=== PATIENT | female | born 1990 | race Caucasian/White ===

== ENCOUNTER 2018-12-16 11:00 | Emergency (ER) | payer MEDICAID, SELFPAY ==
[2018-12-16] VITALS (31 sets, daily range): BP systolic 92–116; BP diastolic 52–69; PULSE 83–113; RESP 9–29; TEMP 36.6; O2SAT 93–99
--- NOTE | 2018-12-16 11:28 | W.ED.GENAD ---
Discharge Plan Disposition Patient Disposition: HOME Condition: Stable Discharge Details Chief Complaint: Nk/Back Pain Clinical Impression: Cervical strain, acute Primary Care Provider: Scarlet Ortiz ED Provider: Ralph Whyte Home Meds and New Rx's Prescriptions: New methocarbamol 500 mg tablet 500 - 1,000 mg PO Q6H PRN (Reason: Pain) Qty: 14 RF: 0 Continued Mirena 20 mcg/24 hours (5 yrs) 52 mg Intrauterine Device INTRAUTERINE RF: 0 Discharge Instructions Instructions: Cervical Strain (ED) Additional Instructions: May use soft cervical collar as needed for comfort. Remove Lidoderm patch in 12 hours, leave off for 12 hours, then may replace with [id number] Lidoderm patch. Ibuprofen 600 to 800 mg every 8 hours, with food. May also use Tylenol 650 mg every 6 hours. Methocarbamol, as prescribed, as needed for pain and spasm. Gentle massage, warm/moist heat, liniment may help in reducing discomfort. Return to the ER for worsening discomfort, development of a rash, difficulty breathing, or any other acute concerns. Stand Alone Forms: Work Release Medical Decision Making 28-year-old female presents from home stating that she rolled out of bed of developed intrascapular upper back and neck pain yesterday.'s been constant, worse with movement. Minimally improved with hqky-bup-wjxinli medicines at home. She arrives a temperature of 36, slightly elevated pulse of 113, normal blood pressure of 113/67 with a room air oxygenation of 97%. She does have some posterior muscular tenderness, but differential diagnosis would include ACS, dissection, pulmonary embolism in addition to muscular strain/spasm. IV access was established, patient given fluid bolus, parenteral analgesia, acetaminophen and Lidoderm patch. Referred for laboratory testing. The d-dimer is elevated greater than 1000. Labs otherwise notable for white blood cell count of 11. Troponin is negative x2 CT scan of the chest without acute findings. Patient improving with medication. Discussed with her that this does seem consistent with cervical/paraspinous thoracic strain. Will treat with methocarbamol, Lidoderm patch, soft cervical collar to be used as needed. She understands homecare/return precautions. ECG Data Attestation: I personally reviewed and interpreted this ECG (s) as follows: Interpretation: Sinus rhythm with a rate of 92, the QRS is narrow, no ST segment elevation present, unremarkable GA interval HPI General Mode of arrival: ambulatory. Date/Time Provider Initiated Documentation: 12/16/18 11:03. Limitations to Documentation: no limitations. Information obtained by: patient. History of Present Illness 28 year old F presents to the emergency department with the chief complaint of Neck and back pain, described as moderate, Quality is described as constant, and is localized to the neck and back. Patient started experiencing this hour(s) and it has been constant. No relieving factors improve symptom(s), Movement worsens symptoms . Patient notes other (No weakness of the hands, no numbness. Denies fall or injury. No leg pain or swelling.); denies headaches. Related Data Home Medications Medication Instructions Recorded Confirmed Mirena INTRAUTERINE 12/16/18 methocarbamol 500 - 1,000 mg PO Q6H PRN #14 tab 12/16/18 Previous Rx's Medication Instructions Recorded methocarbamol 500 - 1,000 mg PO Q6H PRN #14 tab 12/16/18 Allergies Allergy/AdvReac Type Severity Reaction Status Date / Time amoxicillin [Amoxicillin] AdvReac Mild Skin Rash Unverified 12/16/18 11:17 General Stated Complaint: Nk/Back Pain ABEL: 3 Review of Systems Narrative: Some pain with deep breath. No fall or injury. Note recent illness. 6 systems reviewed and otherwise negative [facility] Social History Smoking/Tobacco Use Status: Former Tobacco Use Drug use: Never Substance use type: does not use Do you feel safe at home: Yes Do you feel safe in your relationship?: Yes Exam Narrative Exam Narrative: GEN: awake, alert, oriented 3. Pleasant, well groomed, interactive. HEAD: Normocephalic, atraumatic ENT: Mucous membranes moist, oropharynx unremarkable, External ear exam unremarkable EYES: PERRL, EOMI NECK: Full ROM, no CYNDIE, no menigismus CHEST/RESP: Nontender, clear to auscultation bilateral, no wheeze/rhonchi/rales CARDIOVASCULAR: Regular and tachycardic, no murmur, rub walt. 2+ Rad pulse bilateral ABDOMEN: Soft, nontender, no mass. +Bowel sounds EXT: Full ROM, no edema, no rash Neuro: Grossly normal neurologic exam, conversant, interactive. Psych: Speech fluent, thoughts congruent, affect normal Course Vital Signs Vital signs: Vital Signs Temperature 36.6 C 12/16/18 11:14 Pulse 113 H 12/16/18 11:14 Respiratory Rate 18 12/16/18 11:14 Blood Pressure 113/67 12/16/18 11:14 Pulse Oximetry 97 12/16/18 11:14 Temperature 36.6 C 12/16/18 11:14 Temperature Source Temporal Artery Scan 12/16/18 11:14 Pulse 113 H 12/16/18 11:14 Respiratory Rate 18 12/16/18 11:14 Respiratory Effort Non-Labored 12/16/18 11:14 Blood Pressure 113/67 12/16/18 11:14 Pulse Oximetry 97 12/16/18 11:14 Oxygen Delivery Method Room Air 12/16/18 11:14 Oxygen Flow Rate 0 12/16/18 11:14 Pain Level 10 12/16/18 11:14 Comment 12/16/18 11:14
[2018-12-16] MEDS: Lidocaine 5% Patch 1 PATCH TP (11:51)
[2018-12-16] MEDS: Ketorolac 15 MG/ML VIAL IVP (11:52)
[2018-12-16] MEDS: Ondansetron 4 MG/2 ML VIAL (11:52)
[2018-12-16] MEDS: Normal Saline 500 ML 1000 ML IV (11:53)
[2018-12-16 12:03] LABS: Abs Immature Grans 0.03 k/cumm (0.0-0.09); Absolute Basophil Count 0.02 k/cumm (0.0-0.2); Absolute Eosinophil Count 0.03 k/cumm (0.0-0.7); Absolute Lymphocyte Count 1.56 k/cumm (1.2-3.4); Absolute Monocyte Count 1.37 k/cumm (0.11-0.7); Basophils % 0.2; Eosinophils % 0.3; HCT 40.2 % (36.0-46.0); HGB 13.5 g/dL (12.0-15.5); Immature Grans % 0.3; Lymphocytes % 13.9; Mean Corp. HGB Concentration 33.6 g/dL (32.0-36.0); Mean Corpuscular Hemoglobin 29.9 pg (27.0-33.0); Mean Corpuscular Volume 88.9 fL (80-95); Mean Platelet Volume 10.5 fL (8.0-11.0); Monocytes % 12.2; Neutrophils % 73.1; Platelet Count 249 x1000/uL (130-400); RBC 4.52 m/cumm (4.00-5.20); RBC Distribution Width 12.8 % (11.7-14.6); White Blood Cell Count 11.25 k/cumm (4.4-10.8)
[2018-12-16 12:04] LABS: Absolute Neutrophil Count 8.22 k/cumm (1.2-6.7)
[2018-12-16 12:18] LABS: ALT 37 U/L (14-59); AST 26 U/L (15-37); Albumin 3.8 g/dL (3.4-5.0); Alkaline Phosphatase 99 U/L (46-116); Anion Gap 9.1 mmol/L (3-11); BUN 6 mg/dL (7-18); Bilirubin, Total 0.2 mg/dL (0.2-1.0); CO2 23.9 mmol/L (21.0-32.0); CREATININE 0.81 mg/dL (0.55-1.02); Calcium 8.9 mg/dL (8.5-10.1); Chloride 102 mmol/L (98-107); Glucose 99 mg/dL (70-100); Potassium 4.2 mmol/L (3.5-5.1); Sodium 135 mmol/L (136-145); Total Protein 8.2 g/dL (6.4-8.2); Troponin I < 0.05 ng/mL (0.00-0.06)
[2018-12-16 12:35] LABS: D-Dimer 1163 ng/mlFEU (<500)
[2018-12-16] MEDS: Omnipaque 350 MG/ML 100 ML BTL IJ (12:50)
--- NOTE | 2018-12-16 13:05 | DI.CT_ITS ---
EXAM: CT CHEST PE CTA CLINICAL HISTORY: Elev Ddimer, posterior pain TECHNIQUE: Axial CT angiography was performed with multi slice acquisition and multi planar and/or 3 D reconstructions. The exam was performed utilizing 75 cc's of Omnipaque 350. COMPARISON: No exams were available for comparison FINDINGS: There is no evidence of a pulmonary embolus. The thoracic aorta is of normal caliber. No evidence o f thoracic aortic dissection or aneurysm. The heart size is within normal limits. No pericardial ef fusion or evidence of right heart strain. No significant thoracic adenopathy, pleural effusion or pn eumothorax. Dependent atelectatic changes are seen in the lung bases. No focal consolidating infilt rates are seen in the lungs. The tracheobronchial tree is unremarkable. No acute osseous abnormalit y is seen in the spine. The esophagus is unremarkable. IMPRESSION: No evidence of pulmonary embolism, thoracic aortic dissection or aneurysm.
--- NOTE | 2018-12-16 13:50 | DI.VRAD_ITS ---
PROCEDURE INFORMATION: Exam: CT Angiography Chest With Contrast Exam date and time: 12/16/2018 12:39 PM Clinical history: 28 years old, female; Other: Posterior back pain; Patient HX: Pain posterior back. shoulder blade area. No trauma. No surgeries. Not . No HX of blood clots TECHNIQUE: Imaging protocol: Computed tomographic angiography of the chest with intravenous contrast. 3D rendering: MIP reconstructed images were created and reviewed. Radiation optimization: All CT scans at this facility use at least one of these dose optimization techniques: automated exposure control; mA and/or kV adjustment per patient size (includes targeted exams where dose is matched to clinical indication); or iterative reconstruction. Contrast material: OMNIPAQUE 350; Contrast volume: 75 ml; Contrast route: IV; COMPARISON: CR CHEST 2 VIEWS PA,LAT 11/09/2015 8:52 AM FINDINGS: Pulmonary arteries: Normal. No pulmonary emboli. Aorta: The aorta is normal in caliber with no evidence of aneurysm or dissection. There is pulsation artifact in the ascending aorta. Lungs: There are no focal air space opacities. There are dependent changes in the lung bases related to hypoinflation. Pleural space: Unremarkable. No pneumothorax. No pleural effusion. Heart: Unremarkable. No cardiomegaly. No pericardial effusion. Mediastinum: The trachea and main bronchi are patent. The esophagus is unremarkable. Lymph nodes: Unremarkable. No enlarged lymph nodes. Bones/joints: Unremarkable. No acute fracture. Soft tissues: Unremarkable. IMPRESSION: 1. No evidence of a pulmonary embolism. 2. Dependent changes with no focal air space opacities to suggest pneumonia. Remainder of non-emergent findings as described above. Dictated and Authenticated by: Maddi Ervin MD. Ordering:NING Rosas MD
[2018-12-16] MEDS: Acetaminophen 500 MG TAB 1000 MG PO (14:20)
[2018-12-16 15:17] LABS: Troponin I < 0.05 ng/mL (0.00-0.06)
[2018-12-16] MEDS: Methocarbamol 500 MG TAB (15:44)
== END 2018-12-16 15:50 | disposition home or self-care (01) ==
PROVIDERS: Emergency Provider Emergency Medicine; PCP Internal Medicine
DX: S16.1XXA Strain of muscle, fascia and tendon at neck level, initial encounter (principal); X58.XXXA Exposure to other specified factors, initial encounter
CPT/HCPCS: 36415; 71275; 80053; 96361; 96374; 99285; 84484; 85025; 85379; 99284; J1885; J2405; J3490; L0120

== ENCOUNTER 2019-06-17 14:19 | Outpatient (REF) | payer MEDICAID, SELFPAY ==
[2019-06-18 07:18] LABS: COVID-19 RT-PCR UVMMC Result Negative (Negative)
== END 2019-06-17 14:39 ==
LOC: NCHCN 14:19
PROVIDERS: PCP Internal Medicine; Visit Provider Nurse Practitioner Family
DX: Z11.59 Encounter for screening for other viral diseases (principal)
CPT/HCPCS: U0003

== ENCOUNTER 2019-08-13 13:00 | Outpatient (REF) | payer MEDICAID, SELFPAY ==
[2019-08-13 16:03] LABS: HGB 12.5 g/dL (12.0-15.5); Mean Corp. HGB Concentration 32.9 g/dL (32.0-36.0); Mean Corpuscular Hemoglobin 29.6 pg (27.0-33.0); Mean Platelet Volume 10.4 fL (8.0-11.0); Platelet Count 330 x1000/uL (130-400); RBC 4.22 m/cumm (4.00-5.20); RBC Distribution Width 12.8 % (11.7-14.6)
[2019-08-13 16:22] LABS: ALT 37 U/L (14-59); AST 19 U/L (15-37); Albumin 3.8 g/dL (3.4-5.0); Alkaline Phosphatase 87 U/L (46-116); Anion Gap 8.1 mmol/L (3-11); BUN 9 mg/dL (7-18); Bilirubin, Total 0.2 mg/dL (0.2-1.0); CO2 26.9 mmol/L (21.0-32.0); CREATININE 0.67 mg/dL (0.55-1.02); Calcium 8.6 mg/dL (8.5-10.1); Chloride 104 mmol/L (98-107); Glucose 95 mg/dL (74-106); Potassium 4.2 mmol/L (3.5-5.1); Sodium 139 mmol/L (136-145); TSH (W/Ref FT4) 0.49 uIU/mL (0.36-3.74); Total Protein 7.1 g/dL (6.4-8.2)
== END 2019-08-13 13:20 ==
LOC: NCHCN 13:00
PROVIDERS: PCP Internal Medicine; Visit Provider Nurse Practitioner Family
DX: R53.83 Other fatigue (principal); Z68.35 Body mass index [BMI] 35.0-35.9, adult
CPT/HCPCS: 80053; 85027; 84443

== ENCOUNTER 2020-04-22 15:57 | Outpatient (REF) | payer MEDICAID, SELFPAY ==
[2020-04-23 13:00] LABS: COVID-19 RT-PCR UVMMC Result Negative (Negative)
== END 2020-04-22 15:58 | disposition home or self-care (01) ==
LOC: LBN 15:57
PROVIDERS: PCP Internal Medicine; Visit Provider Nurse Practitioner Pediatrics
DX: Z20.822 Contact with and (suspected) exposure to COVID-19 (principal)
CPT/HCPCS: U0003

== ENCOUNTER 2020-06-24 14:22 | Outpatient (REF) | payer MEDICAID, SELFPAY ==
[2020-06-24 20:50] LABS: Abs Immature Grans 0.01 10^3/uL (0.0-0.06); Absolute Basophil Count 0.08 10^3/uL (0.0-0.2); Absolute Lymphocyte Count 2.93 10^3/uL (1.2-3.4); Absolute Monocyte Count 0.67 10^3/uL (0.1-0.8); Absolute Neutrophil Count 4.76 10^3/uL (1.2-6.7); Basophils % 0.9; Eosinophils % 1.2; HCT 40.3 % (36.0-46.0); HGB 13.3 g/dL (11.2-15.7); Immature Grans % 0.1; Lymphocytes % 34.3; MCH 30.2 pg (27.0-33.0); MCV 91.6 fL (80-95); MPV 10.4 fL (8.0-11.0); Monocytes % 7.8; Neutrophils % 55.7; Nucleated RBC 0 %; Platelet Count 333 10^3/uL (130-400); RDW 12.1 % (11.7-14.6); RDW-SD 40.8 fL; WBC 8.55 10^3/uL (4.4-10.8)
[2020-06-24 21:53] LABS: ALT 42 U/L (14-59); AST 20 U/L (15-37); Albumin 4.4 g/dL (3.4-5.0); Alkaline Phosphatase 83 U/L (46-116); Anion Gap 9.7 mmol/L (3-11); BUN 7 mg/dL (7-18); Bilirubin, Total 0.4 mg/dL (0.2-1.0); CO2 27.3 mmol/L (21.0-32.0); CREATININE 0.7 mg/dL (0.55-1.02); Calcium 9.2 mg/dL (8.5-10.1); Chloride 104 mmol/L (98-107); Glucose 89 mg/dL (74-106); Potassium 4.1 mmol/L (3.5-5.1); Sodium 141 mmol/L (136-145); Total Protein 7.9 g/dL (6.4-8.2)
[2020-06-24 22:40] LABS: FREE T4 1.09 ng/dL (0.76-1.46)
== END 2020-06-24 14:23 | disposition home or self-care (01) ==
LOC: LBN 14:22
PROVIDERS: PCP Internal Medicine; Visit Provider Physician Assistant Medical
DX: R53.83 Other fatigue (principal)
CPT/HCPCS: 80053; 84439; 84443; 85025

== ENCOUNTER 2020-08-10 11:38 | Outpatient (REF) | payer MEDICAID, SELFPAY ==
[2020-08-10 15:45] LABS: ESR 12 mm/hr (0-20)
[2020-08-10 16:27] LABS: C-Reactive Protein 0.57 mg/dL (0.0-0.3); TSH (W/Ref FT4) 0.51 uIU/mL (0.36-3.74)
[2020-08-10 21:54] LABS: Rheumatoid Factor <8.6 IU/mL (<12.0)
[2020-08-11 15:23] LABS: ANA Interpretation Positive (Negative); ANA Titer Pattern 1:160 Speckled
== END 2020-08-10 11:39 | disposition home or self-care (01) ==
LOC: NCHCN 11:38
PROVIDERS: PCP Internal Medicine; Visit Provider Nurse Practitioner
DX: M25.59 Pain in other specified joint (principal); Z13.29 Encounter for screening for other suspected endocrine disorder
CPT/HCPCS: 85652; 84443; 86038; 86140; 86431

== ENCOUNTER 2020-08-31 15:04 | Emergency (ER) | payer MEDICAID, SELFPAY ==
[2020-08-31] VITALS (37 sets, daily range): BP systolic 98–126; BP diastolic 49–77; PULSE 52–91; RESP 4–21; TEMP 36.4; O2SAT 93–100
--- NOTE | 2020-08-31 15:00 | RT.EKG_ITS ---
APPROVED REPORT Exam: Resting ECG Reason for Exam: feeling faint Patient Location: E HR:82 bpm ECG Measurements Heart Rate 82 AXIS RI 150 P 32 QRSd 98 QRS 65 QT 387 T 44 QTc 452 Conclusion Sinus rhythm...normal P axis, V-rate 60- 99. No STEMI. I have reviewed and interpreted ECG and agree with software generated interpretation.
--- NOTE | 2020-08-31 15:29 | W.ED.GENAD ---
Discharge Plan Disposition Patient Disposition: HOME Condition: Stable Discharge Details Clinical Impression: Weakness generalized, Hypokalemia Primary Care Provider: Scarlet Ortiz ED Provider: Amber Chavez Home Meds and New Rx's Prescriptions: No Action fluticasone propionate 50 mcg/actuation spray,suspension 1 spray intranasal BID RF: 0 duloxetine 30 mg capsule,delayed release(DR/EC) 30 mg PO DAILY RF: 0 Mirena 20 mcg/24 hours (5 yrs) 52 mg Intrauterine Device INTRAUTERINE RF: 0 Discharge Instructions Instructions: Hypokalemia (ED), Weakness (ED) Additional Instructions: Today your potassium level was mildly low at a level of 3.1. This can cause weakness. Increase bananas or take a supplement. The Lyme panel is still pending at this time. Please follow up with PCP in 3-5 days. Increase oral fluids. Return for any worsening. A referral was placed for neurology. Stand Alone Forms: Work Release Referrals: Scarlet Ortiz [Primary Care Provider] - Dasia Bergman MD [ [facility] STAFF PHYSICIAN] - 2 weeks (Generalized weakness, tingling, headaches.) Discharge Data Discharge Date/Time-TO BE ENTERED AT DEPARTURE: 08/31/20 18:44 Medical Decision Making 30-year-old the ER female presents with chief complaint of dizziness, tingling, near syncope. 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 Patient reports she becomes, hot, flushed and then feels like she is going to pass out. Denies MCPHERSON, Chest pain, SOB, Dysuria, or abdominal pain. Patient states she had a MCPHERSON, and nausea yesterday which was alleviated by OTC migraine medicine. Patient states she was recently prescribed Cymbalta Monday but has only taken 1 tablet. She has never seen neurology, but a referral was alledgedly placed by PCP. Denies trauma, fever, neck pain. Imaging protocol: Computed tomography of the head without contrast. COMPARISON: No relevant prior studies available. FINDINGS: Brain: Normal. No hemorrhage. Unremarkable white matter. No mass effect. Cerebral ventricles: No ventriculomegaly. Paranasal sinuses: Visualized sinuses are unremarkable. No fluid levels. Mastoid air cells: Visualized mastoid air cells are well aerated. Bones/joints: Unremarkable. No acute fracture. Soft tissues: Unremarkable. IMPRESSION: No acute intracranial abnormality. Thank you for allowing us to participate in the care of your patient. Dictated and Authenticated by: Sonido Knox MD Labs are notable for slight leukocytosis, potassium 3.1, Anion gap 15.8, TSh WNL Urinalysis negative for UTI, Lyme panel pending at this time. Will DC with referral to PCP, and Neurology. Diff Dx includes but not limited to, Anxiety, MS, Fibromyalgia, Lyme disease. Patient reevaluation, she is alert and oriented, awake moving all 4 extremities without difficulty appears in no acute distress. Friend is at bedside. Discussed findings with patient who verbalized understanding. This text was generated using [employer] (acquired by [employer]) dictation system, please disregard any oddities of phrase or misspellings. HPI General Mode of arrival: ambulatory. Date/Time Provider Initiated Documentation: 08/31/20 15:26. Limitations to Documentation: no limitations. Information obtained by: patient and RN notes reviewed. HPI Narrative: 30-year-old the ER female presents with chief complaint of dizziness, tingling, near syncope. 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 Patient reports she becomes, hot, flushed and then feels like she is going to pass out. Denies MCPHERSON, Chest pain, SOB, Dysuria, or abdominal pain. Patient states she had a MCPHERSON, and nausea yesterday which was alleviated by OTC migraine medicine. Patient states she was recently prescribed Cymbalta Monday but has only taken 1 tablet. She has never seen neurology, but a referral was alledgedly placed by PCP. Denies trauma, fever, neck pain. Related Data Home Medications Medication Instructions Recorded Confirmed Mirena INTRAUTERINE 12/16/18 fluticasone propionate 50 1 spray INTRANASAL BID 08/10/20 08/31/20 mcg/actuation nasal spray,suspension duloxetine 30 mg PO DAILY 08/31/20 08/31/20 Allergies Allergy/AdvReac Type Severity Reaction Status Date / Time amoxicillin [Amoxicillin] AdvReac Mild Skin Rash Unverified 08/31/20 15:23 General Stated Complaint: Dizzy/Sync ABEL: 3 Review of Systems Narrative: Constitutional: Negative for weight loss, alert and oriented, well groomed, obese body habitus, appears comfortable. HEENT: Denies trauma, , nasal discharge, sore throat, trouble swallowing. Chest: Denies chest pain, palpitations, irregular rhythm, hypertension. Respiratory: Denies Shortness of breath, cough, hemoptysis. GI: Denies abdominal pain, nausea, vomiting, diarrhea, constipation. Reports nausea yesterday none today. : Denies dysuria, hematuria, flank pain, rectal bleeding. Neuro: Positive blurry vision, near syncope, headache. numbness. Hematologic: Denies easy bruising, intolerance to heat or cold, hair loss. [facility] Medical History Acute upper respiratory infection At risk for sleep apnea Benign neoplasm of skin of back BMI 35.0-35.9,adult Confusion Fatigue Migraine Polyarthritis Screening for thyroid disorder Social History Smoking/Tobacco Use Status: Current every day Tobacco Type: e-cigarettes Smoking risk assessment performed?: Yes Alcohol Intake: current Alcohol Intake frequency: a few times a month Drug use: Never Substance use type: does not use Do you feel safe at home: Yes Do you feel safe in your relationship?: Yes Exam Narrative Exam Narrative: Constitutional: Alert and oriented x3. Appears stated age. Overweight body habitus. Patient appears anxious avoids eye contact states she feels numb all over. Head: Normocephalic, no trauma. Eyes: Pupils PERRLA, Red reflex noted, EOM's intact. Eyelids symmetrical without lesions, discharge, or swelling. ENT: Bilateral TM's WNL, External ear normal to inspection, no mastoid TTP, swelling, or erythema, Nasal turbinates WNL, no nasal discharge. Normal dentition, Posterior pharynx WNL, no exudate. Chest: RRR, Normal S1, S2, distal pulses intact. Resp: Lungs clear to auscultation bilaterally, no wheezes, rales, or rhonchi. Musculoskeletal: Normal gait, 5/5 strength to all four extremities. Skin: No suspicious rashes or lesions. Capillary refill less than 2 sec. Neurologic: Cranial nerves II-XII intact. Alert and oriented x 3. DTR's intact. Patient reports decreased sensation to the right lower extremity. Gross motor intact, dorsal pedal pulses intact cap refill less than 2 seconds. Hematologic/Lymphatic: No ecchymosis, no lymphadenopathy. Course Vital Signs Vital signs: Vital Signs Temperature 36.4 C L 08/31/20 15:14 Pulse 82 08/31/20 15:14 Respiratory Rate 19 08/31/20 15:14 Blood Pressure 112/76 08/31/20 15:14 Pulse Oximetry 100 08/31/20 15:14 Temperature 36.4 C L 08/31/20 15:14 Temperature Source Temporal Artery Scan 08/31/20 15:14 Pulse 82 08/31/20 15:14 Respiratory Rate 19 08/31/20 15:14 Respiratory Effort 08/31/20 15:18 Blood Pressure 112/76 08/31/20 15:14 Blood Pressure Position Supine 08/31/20 15:14 Pulse Oximetry 100 08/31/20 15:14 Oxygen Delivery Method Room Air 08/31/20 15:14 Oxygen Flow Rate 0 08/31/20 15:14 Pain Level 0 08/31/20 15:14
--- NOTE | 2020-08-31 15:45 | DI.CT_ITS ---
Exam(s) CT HEAD WO EXAM: CT HEAD WO CLINICAL HISTORY: Dizziness. TECHNIQUE: Imaging Protocol: Axial computed tomography images with coronal and sagittal reformatted images were created and reviewed COMPARISON: No exams were available for comparison FINDINGS: Ventricles and Extra axial spaces: Normal in size and morphology for the patient's age. Hemorrhage: None. Cerebral parenchyma: Normal. Midline shift: None. Brainstem/Cerebellum: Normal. Calvarium: Normal. Visualized Paranasal sinuses/Mastoids: Clear. Soft Tissues: Unremarkable. IMPRESSION: No acute intracranial process. RADIATION DOSE DELIVERED: 713.22mGy.cm Total DLP DATA REPOSITORY: All CT scans at this facility are submitted to the National Radiology Data Registry (NRDR) Dose Index Registry (DIR) with the [employer] (ACR). RADIATION OPTIMIZATION: All CT scans at this facility use at least one of these dose optimization te chniques: automated exposure control; mA and/or kV adjustment per patient size (includes targeted exa ms where dose is matched to clinical indication); or iterative reconstruction.
[2020-08-31 15:56] LABS: Abs Immature Grans 0.03 10^3/uL (0.0-0.06); Absolute Basophil Count 0.07 10^3/uL (0.0-0.2); Absolute Eosinophil Count 0.08 10^3/uL (0.0-0.7); Absolute Lymphocyte Count 3.51 10^3/uL (1.2-3.4); Basophils % 0.6; Eosinophils % 0.7; HCT 40.5 % (36.0-46.0); HGB 13.7 g/dL (11.2-15.7); Immature Grans % 0.3; Lymphocytes % 29.4; MCH 30.2 pg (27.0-33.0); MCHC 33.8 % (32.0-36.0); MCV 89.2 fL (80-95); MPV 10.1 fL (8.0-11.0); Monocytes % 9.2; Neutrophils % 59.8; Nucleated RBC 0 %; Platelet Count 340 10^3/uL (130-400); RBC 4.54 10^6/uL (3.93-5.22); RDW 11.9 % (11.7-14.6); RDW-SD 39.2 fL; WBC 11.95 10^3/uL (4.4-10.8)
[2020-08-31 15:57] LABS: Bilirubin Negative (Negative); Blood Negative (Negative); Clarity Clear (Clear); Glucose Negative (Negative); Ketones Trace mg/dL (Negative); Leukocyte Esterase Negative (Negative); Nitrite Negative (Negative); Urobilinogen 0.2 EU/dL (Up TO 0.2); pH 6.5 (5-8)
[2020-08-31 15:58] LABS: Absolute Neutrophil Count 7.15 10^3/uL (1.2-6.7)
[2020-08-31] MEDS: Normal Saline 1,000 ML 1000 ML IV (16:04)
[2020-08-31 16:09] LABS: ALT 26 U/L (14-59); AST 14 U/L (15-37); Albumin 4.4 g/dL (3.4-5.0); Alkaline Phosphatase 85 U/L (46-116); Anion Gap 15.8 mmol/L (3-11); BUN 15 mg/dL (7-18); Bilirubin, Total 0.4 mg/dL (0.2-1.0); CO2 21.2 mmol/L (21.0-32.0); CREATININE 0.8 mg/dL (0.55-1.02); Calcium 9.4 mg/dL (8.5-10.1); Chloride 103 mmol/L (98-107); Glucose 102 mg/dL (74-106); Potassium 3.1 mmol/L (3.5-5.1); Sodium 140 mmol/L (136-145); Total Protein 8.4 g/dL (6.4-8.2)
[2020-08-31 16:19] LABS: Magnesium 1.9 mg/dL (1.8-2.4); TSH 0.56 uIU/mL (0.36-3.74)
[2020-08-31 16:20] LABS: Troponin I < 0.05 ng/mL (<0.06)
[2020-08-31 16:22] LABS: *AMPHETAMINES SCREEN URINE Negative (Negative); *BARBITURATES SCREEN URINE Negative (Negative); *BENZODIAZEPINES SCREEN URINE Negative (Negative); Cannabinoids THC Negative (Negative); Cocaine Screen,Urine Negative (Negative); METHADONE URINE SCREEN Negative (Negative); OPIATES URINE SCREEN Negative (Negative)
[2020-08-31 16:24] LABS: Tricyclic Antidepressants Negative (Negative)
[2020-08-31] MEDS: Potassium Chloride 20 MEQ TABCR 40 MEQ PO (17:46)
--- NOTE | 2020-08-31 18:09 | DI.VRAD_ITS ---
PROCEDURE INFORMATION: Exam: CT Head Without Contrast Exam date and time: 08/31/2020 4:01 PM Age: 30 years old Clinical indication: Pain; Other: Dizziness TECHNIQUE: Imaging protocol: Computed tomography of the head without contrast. COMPARISON: No relevant prior studies available. FINDINGS: Brain: Normal. No hemorrhage. Unremarkable white matter. No mass effect. Cerebral ventricles: No ventriculomegaly. Paranasal sinuses: Visualized sinuses are unremarkable. No fluid levels. Mastoid air cells: Visualized mastoid air cells are well aerated. Bones/joints: Unremarkable. No acute fracture. Soft tissues: Unremarkable. IMPRESSION: No acute intracranial abnormality. Dictated and Authenticated by: Sonido Knox MD. Ordering:VASILE Clark MD
[2020-09-02 11:05] LABS: Lyme Ab w Rflx to Lyme Confirm Negative (Negative)
[2020-09-03 07:37] LABS: Anaplasma phagocytophilum Negative (Negative); B. miyamotoi PCR Negative (Negative); Babesia divergens/MO-1 Negative (Negative); Babesia duncani Negative (Negative); Babesia microti Negative (Negative); Ehrlichia chaffeensis Negative (Negative); Ehrlichia ewingii/canis Negative (Negative); Ehrlichia muris eauclairensis Negative (Negative)
== END 2020-08-31 18:44 | disposition home or self-care (01) ==
PROVIDERS: Emergency Provider Registered Nurse Emergency; PCP Internal Medicine
DX: R53.1 Weakness (principal); E87.6 Hypokalemia
CPT/HCPCS: 80053; 80307; 81025; 87798; 93005; 96360; 99284; 70450; 81003; 83735; 84443; 84484; 85025; 86618; 93010; 99283

== ENCOUNTER 2020-09-24 05:03 | Outpatient (RCR) | payer MEDICAID, SELFPAY ==
--- NOTE | 2020-09-24 10:30 | HOLTER_ITS ---
APPROVED REPORT Conclusion This is a 48-hour monitor with indication of palpitations. The patient was in normal sinus rhythm with majority the recording with an average heart rate of 84 b pm. There were no episodes of supraventricular tachycardia nor any episodes of ventricular tachycardia. There were rare PACs/PVCs. There were no episodes of atrial fibrillation, no pauses greater than 3 seconds and no evidence of hi gh degree heart block. There were 5 patient triggered events associated with chest pain/fluttering/lightheadedness. None of these were associated with arrhythmia.
== END 2020-10-20 23:59 | disposition home or self-care (01) ==
LOC: RT 05:03
PROVIDERS: PCP Internal Medicine; Visit Provider Nurse Practitioner Family
DX: R00.2 Palpitations (principal); R42 Dizziness and giddiness
CPT/HCPCS: 93225; 93226

== ENCOUNTER 2024-09-30 21:55 | Emergency (ER) | payer BC, SELFPAY ==
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
[2024-09-30 22:06] VITALS: BP 143/109; PULSE 104; RESP 18; TEMP 36.7; O2SAT 97
--- NOTE | 2024-09-30 22:15 | RT.EKG_ITS ---
APPROVED REPORT Exam: Resting ECG Reason for Exam: mental health clearance Patient Location: E HR:81 bpm ECG Measurements Heart Rate 81 AXIS [place] 142 P 58 QRSd 92 QRS 48 QT 347 T 29 QTc 403 Conclusion Sinus rhythm...normal P axis, V-rate 60- 99 Probable left atrial enlargement...P >50mS, <-0.10mV V1 Normal [place]/Interval No acute ST changes
[2024-09-30 22:50] LABS: Abs Immature Grans 0.02 10^3/uL (0.0-0.06); HCT 46.1 % (36.0-46.0); HGB 15.4 g/dL (11.2-15.7); Immature Grans % 0.2 %; MCH 31.0 pg (27.0-33.0); MCHC 33.4 % (32.0-36.0); MCV 93 fL (80-95); MPV 10.4 fL (8.0-11.0); Platelet Count 300 10^3/uL (130-400); RBC 4.96 10^6/uL (3.93-5.22); RDW 12.2 % (11.7-14.6); RDW-SD 42.0 fL; WBC 10.82 10^3/uL (4.4-10.8)
[2024-09-30 22:52] LABS: Glucose Negative (Negative)
[2024-09-30 23:11] LABS: Cannabinoids THC Positive (Negative); METHADONE URINE SCREEN Negative (Negative)
[2024-09-30 23:15] LABS: HCG Qual (Serum) Negative
[2024-09-30 23:18] LABS: C & S Indicated? No; RBC 0-2 HPF (0-2); WBC 0-2 HPF (0-5)
[2024-09-30 23:19] LABS: Salicylate < 2.8 mg/dL (<2.8)
[2024-09-30 23:20] LABS: ALT 29 U/L (14-59); AST 14 U/L (15-37); Acetaminophen < 2 ug/mL (10-30); Albumin 3.7 g/dL (3.4-5.0); Alkaline Phosphatase 120 U/L (46-116); Anion Gap 9.4 mmol/L (3-11); BUN 19 mg/dL (7-18); Bilirubin, Total 0.2 mg/dL (0.2-1.0); CO2 22.6 mmol/L (21.0-32.0); Calcium 8.8 mg/dL (8.5-10.1); Chloride 108 mmol/L (98-107); Estimated GFR 68.04 (mL/min/1.73m2); Glucose 122 mg/dL (74-106); Potassium 4.2 mmol/L (3.5-5.1); Sodium 140 mmol/L (136-145); TSH (W/Ref FT4) 3.12 uIU/mL (0.36-3.74); Total Protein 7.5 g/dL (6.4-8.2)
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
[2024-10-01 07:24] VITALS: BP 125/88; PULSE 66; RESP 16; TEMP 36.6; O2SAT 99
--- NOTE | 2024-10-01 07:31 | CMPROGNOTE_ITS ---
Date of service: 10/01/24 Time of Service: 10:10 Care Management Progress Note Progress Note Text Progress Note Text: CM huddled with [facility] B RN, DONNA, the ER provider, the Machine Shop Inspector, and the ED Charge Nurse to coordinate the patient?s plan of care. It was noted by the RN that the patient declined voluntary treatment and remained deregulated throughout most of the day. Per report, the Scarlet was brought in by [facility] and DONNA due to concerns for antoinette. Per report, Scarlet denies auditory hallucinations, it appeared that she may be speaking to others that are not that. CM placed an involuntary safety plan. CM will continue to follow. Status Status: Involuntary Social Determinants of Health Screening Will the Patient Participate in the Screening?: Declined to provide
--- NOTE | 2024-10-01 07:32 | CMSP_ITS ---
Date of service: 10/01/24 Time of Service: 07:32 Care Management Safety Plan Status Status: Involuntary Reason for Wait Reason for Wait: Inpatient Admission and Assessment/Screening (per RN, [facility] not screen if the patient has been accepted by [place]) Safety Plan Safety Plan: INVOLUNTARY FOR INPATIENT PSYCHIATRIC STABILIZATION.? Patient is appropriate in all interactions since arriving at [facility]; Pt has demonstrated appropriate coping and communication skills, has articulated his or her needs and concerns and is fully engaged during staff interactions. Safety plan has been established with patient, and care team, to adhere to patient goals, identify restrictions based on behavioral status, address nutrition, and determine allowed personal belongings, tools for hygiene and personal care. Determine level of activity including ambulation, level of supervision, visitors, and determine privileges based on behaviors and level of engagement by pt. SAFETY PLAN: 1. Will remain on suicide precautions, in paper clothes 2. Will remain in Zone B under direct supervision of one-on-one staff at all times provided by [employer]; LEXII, FIELD OPERATIONS TECHNICIAN used car make ready worker. 3. May have paper cups, plates, finger foods as well as a cardboard spoon with which to eat meals. 4. Follow [facility] Management of the Admitted Behavioral Health Patient policy. 5. Shower available in Zone B without restriction. 6. Personal belongings-soft items permitted at RN discretion. 7. Visitors-none at this time. 8. Activities: soft cart items approved per RN discretion. 9.? Bathroom available in Zone B without restriction. 10. Phone: limited to legal support specialist on [facility] cordless phone at RN discretion. Due to INVOLUNTARY status, patient is being held at [facility] by the Department of Mental Health ([facility]) until 2nd certification by [facility] Psychiatrist can be performed (within 24 hours). Staff will provide de-escalation support (CPI) as needed. If patient wishes to leave [facility], staff will contact [facility] Crisis Screener ([phone]) and Shell Machine Operator ([phone]) as soon as possible. In the event of elopement, notify [place] Police ([phone]). Patient is currently involuntarily at [facility]. [facility] Frontline Water Safety Instructor will continue seeking placement. Please contact the Shell Machine Operator for any needed changes to Safety Plan. Safety plan has been provided to interdepartmental care team. Patient will be transported by [facility] at time of discharge.
--- NOTE | 2024-10-01 07:32 | PDOC.CMSAFE ---
Date of service: 10/01/24 Time of Service: 07:32 Care Management Safety Plan Status Status: Involuntary Reason for Wait Reason for Wait: Inpatient Admission and Assessment/Screening (per RN, [facility] not screen if the patient has been accepted by [place]) Safety Plan Safety Plan: INVOLUNTARY FOR INPATIENT PSYCHIATRIC STABILIZATION.? Patient is appropriate in all interactions since arriving at [facility]; Pt has demonstrated appropriate coping and communication skills, has articulated his or her needs and concerns and is fully engaged during staff interactions. Safety plan has been established with patient, and care team, to adhere to patient goals, identify restrictions based on behavioral status, address nutrition, and determine allowed personal belongings, tools for hygiene and personal care. Determine level of activity including ambulation, level of supervision, visitors, and determine privileges based on behaviors and level of engagement by pt. SAFETY PLAN: 1. Will remain on suicide precautions, in paper clothes 2. Will remain in Zone B under direct supervision of one-on-one staff at all times provided by [employer]; LEXII, AMERICAN INDIAN POLICY SPECIALIST behavior clinician. 3. May have paper cups, plates, finger foods as well as a cardboard spoon with which to eat meals. 4. Follow [facility] Management of the Admitted Behavioral Health Patient policy. 5. Shower available in Zone B without restriction. 6. Personal belongings-soft items permitted at RN discretion. 7. Visitors-none at this time. 8. Activities: soft cart items approved per RN discretion. 9.? Bathroom available in Zone B without restriction. 10. Phone: limited to junior legal secretary on [facility] cordless phone at RN discretion. Due to INVOLUNTARY status, patient is being held at [facility] by the Department of Mental Health ([facility]) until 2nd certification by [facility] Psychiatrist can be performed (within 24 hours). Staff will provide de-escalation support (CPI) as needed. If patient wishes to leave [facility], staff will contact [facility] Crisis Screener ([phone]) and Evaporator Supervisor ([phone]) as soon as possible. In the event of elopement, notify [place] Police ([phone]). Patient is currently involuntarily at [facility]. [facility] Frontline Financial Services Associate will continue seeking placement. Please contact the Evaporator Supervisor for any needed changes to Safety Plan. Safety plan has been provided to interdepartmental care team. Patient will be transported by [facility] at time of discharge.
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
--- NOTE | 2024-10-01 21:31 | PDOC.MHPN2 ---
Date of service: 10/01/24 Time of Service: 12:00 Mental Health Emergency Note Release [facility] release signed:: Yes Reason for Visit In the last 2 weeks has the pt presented for ES prior to today?: No Impression mental susana EE was drated after [facility] declined transport to [place]. Plan/Disposition Recommended Disposition: Hospitalization (EE Passed) facilities contacted. Reports/communication Outcome discussed with: ED/Personnel
--- NOTE | 2024-10-01 22:32 | PSYCO_ITS ---
Date of service: 10/01/24 Time of Service: 21:50 Summary Note PSYCHIATRY CONSULT NOTE: INITIAL EVALUATION Date/Time:?10/01/2024 10:31:23 PM Name:Vane Chiang :?1990 Location of the patient:?[facility] ED Consulting Array Clinician:Iram Michelle Location of the clinician:?[place] Length of Consult:?40min SUMMARY 34-year-old female, with history of psychotic disorder, current cannabis/alcohol use, history of aggressive behavior, poor self-care, history of psychiatric hospitalization, with no history of self-harming/suicidal behavior, arrived via police alerted by partner for suicidal ideation, psychosis, homicidal ideation. PT is a 34y/o wf with h/o psychosis brought in due to disorganized thoughts and fear that people aren't real. she does have access to guns and a h/o suicidal thoughts. Her boyfriend had called for help with concerns she may harm herself or someone else due to paranoia and psychosis. Pt was a poor historian but did endorse insomnia, seeing things and feeling paranoid and unsafe. She reports a h/o trauma but did not elaborate. She denied abuse of drugs or alcohol other than marijuana. She denied taking any medications. She was reported to be physically aggressive with staff. she currently presents dishevelled. with poor eye contact and appears agitated and responding to internal stimuli. She was labile, smiling inappropriately and then turn angry and hitting herself or like she was shooing something away from her. Pt appears psychotic, agitated and unsafe for discharge.Patient is at elevated risk of danger to others. Patient presently meets criteria for inpatient psychiatric hospitalization. Working Diagnoses:? 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 Observation level ? Psychiatric 1:1 needed??Initiate psych 1:1 OR Close observation per hospital protocol Work-up:? Pharmacological:? * olanzapine 5 mg PO QHS for psychosis * olanzapine 10mg PO/IM Q6h PRN agitation, avoid concomitant use of benzo within 1 hour of IM olanzapine * Is patient psychotic? - Yes; Were antipsychotic medications started? - Yes * Informed consent: Discussed risks and benefits of the above recommended psychiatric medications with patient, who demonstrated understanding and gave express informed consent to take the above medications as documented. Follow up needed while in the hospital??[id number] Other:? * Discussed benefits of sleep, exercise, and meditation for anxiety/depression * Recommend inpatient psych team work with local law enforcement to have firearms in the patient's home removed. * Patient advised to stop all drug and alcohol use. Patient voiced understanding. * If questions arise about the psychiatric care of this patient, please call the [facility]?to request a follow-up consult. ?Please do not contact me individually through the EMR chat as I am not?regularly logged on to?this system. The psychiatrist for the follow- up visit may be a different psychiatrist Discussed plan with onsite steam fitter:?Yes - Dr Conner Javier HISTORY This evaluation was conducted remotely with the assistance of onsite staff via HIPAA-compliant video call. Patient consented to proceed with the telehealth visit. Requested by:?Scarlet Ortiz MD Sources of information:?Patient, medical record History of Present Illness:? 34-year-old female, living with spouse/partner, in a current relationship, on disability, with history of psychotic disorder, current cannabis/alcohol use, history of aggressive behavior, poor self-care, history of psychiatric hospitalization, with no history of self-harming/suicidal behavior, arrived via police alerted by partner for suicidal ideation, psychosis, homicidal ideation. UDS positive for cannabis, Alcohol undetectable. In the hospital, patient has been agitated. On psychiatric evaluation, patient is disorganized, cooperative. PT is a 34y/o wf with h/o psychosis brought in by police after boyfriend called to report fear for patient and others. Pt reports feeling depressed, cranky and tired Pt denied hearing voices and responded with well, you know when asked about seeing things. She did endorse feeling paranoid. She admits to suicidal thoughts and then said in the past. SHe denied h/o self harm. She did not answer reference thoughts of harm to others or h/o violence. She is not eating well. She says she does drink alcohol but denied withdrawal. She denied illicit drug use or taking any medications.. Collateral Contacted No-- patient meets criteria for inpatient hospitalization. PSYCHIATRIC REVIEW OF SYSTEMS (symptoms in past two weeks) Pertinent Positives:?depressed mood/anhedonia/insomnia/anergia/irritability/aggressive behavior/agitation/visual hallucinations/paranoia/disordered thinking/mood swings Pertinent Negatives:?no hopelessness/no poor appetite PSYCHIATRIC HISTORY Past Psychiatric Diagnoses/Problems:?psychotic disorder Psychiatric Treatment:?Hospitalizations:?psychiatric hospitalization ???Other Past treatment:?medication management ???Current treatment:?medication management; treatment non-adherent Drug/Alcohol History ???Current excessive drug/alcohol use:?cannabis, alcohol ???Past excessive drug/alcohol use:?none ???Drug/alcohol use comment:?Treatment:?none ???Withdrawal symptoms:?none ???UDS results:?UDS positive for cannabis ???BAL results:?undetectable ???Active withdrawal Protocol:? Stressors:?inadequate social support, treatment non-adherence, exacerbation of mental illness Trauma:?unspecified past trauma Family Psychiatric History:?unknown, pt reports no contact with her family HEALTH HISTORY Medical Problems:? none Is patient linked with PCP??unknown Psychiatric and other clinically relevant medications:? Allergies/Adverse Medication Reactions:?amoxicillin Physical Findings:?no clinically significant changes in vital signs, no clinically significant abnormal lab values, QTc < 500 ms, test negative DEMOGRAPHICS/SOCIAL HISTORY Gender:?female Living Situation:?living with spouse/partner Relationship Status:?in a current relationship Education:?unable to assess Employment:?on disability Social Support Network:?supportive social network of family or friends Legal History:?unable to assess Special Considerations:?none RISK EVALUATION Suicidality/self-injury:?no history of suicidal/self-harming behavior Primary Suicide Screening (PSS-3) 1. In the past two weeks, have you felt down, depressed, or hopeless??YES 2. In the past two weeks, have you had thoughts of killing yourself??Unable to assess 3. In your lifetime, have you ever attempted to kill yourself??NO 3a. Within the past 6 months??NO ESS-6 Secondary Screen ( If #2 is yes or #3a is yes within the past 6 months, then complete secondary screen) 1. Positive on PSS-3 questions 2 & 3 ? active suicidal ideation with a past attempt??Screen not applicable 2. Have you been thinking about how you might kill yourself??Screen not applicable 3. Have you had some intention of acting on your thoughts??Screen not applicable 4. Lifetime psychiatric hospitalization??Screen not applicable 5. Has drinking or substance abuse ever been a problem for you??Screen not applicable 6. Current irritability, agitation, or aggression??Screen not applicable PSS-3/ESS-6 Secondary Screen Scoring:?PSS-3 screen unable to assess PSS-3/ESS-6 Scoring Interpretation Legend PSS-3 screen incomplete [Blank PSS-3 questions #2 OR #3a] PSS-3 screen unable to assess [Unable to Assess responses on PSS-3 questions #2 AND #3a] Mild [No current attempt AND No suicide plan or intent AND Score (0-2)] Moderate [No current attempt AND Active suicidal ideation with plan or intent (not both) OR Score (3-4)] Severe [Current attempt OR Suicide plan and intent OR Score (5-6)] HI/Violence/Property Destruction:?Yes Access to Firearms:?loaded and unlocked firearms Grave disability/Poor self-care:?yes poor self-care Psychosis:?Yes Protective Factors:? High Utilization Criteria:? Signs of Secondary Gain:? MENTAL STATUS EXAM Appearance and Attire:? Poor eye contact, Disheveled Psychomotor agitation:? Psychomotor agitation Attitude and behavior:? Agitated, Guarded, Responding to internal stimuli Speech:? Slow, Soft Mood:? Mixed Affect:? Labile Thought Process:? Vague Thought content:? Paranoia Perception:? Auditory hallucinations, Visual hallucinations Intelligence:? Average, Low average Abstraction:? Poor reasoning Language:?unable to assess Orientation:? Oriented to person Sensorium:? Distractible Knowledge:?unable to assess Memory:?unable to assess Insight:? Lack of awareness of problems, Severe impairment Judgment:? Severe impairment, Impaired in interactions with others, Impaired in response and decision making, Impaired in responses to current situation and behavior, Impaired in self care, Impaired in treatment compliance SUMMARY RISK ASSESSMENT Current Suicide Risk Elevated??PSS-3/ESS-6 Scoring: PSS-3 screen unable to assess? Current Violence Risk Elevated??Yes Issues with ability to care for self.?undetermined SAFE-T Risk Factors Suicidal Behavior:? unknown Current/Past Psychiatric Disorders:? psychosis Current/Past Substance Use:? cannabis [place] Symptoms:? psychotic paranoid Family History Risk Factors:? unknown Precipitants/Stressors/Interpersonal/Triggers:? unknown Treatment:? none YES Access to firearms/ammunition Protective Factors Internal:? none External:? none ?
--- NOTE | 2024-10-01 23:05 | W.EDPROG ---
Date of service: 10/01/24 Time of Service: 16:00 Narrative Patient signed out to me by Dr. Dasia Coffey who has acute psychosis and has voluntarily been placed. She has been being calm to the evening. I have spoken with the psychiatrist who recommends she get Zyprexa every 6 hours as needed IM if she develops a psychotic episode. Patient will be signed out to Dr. Thompson Discharge Plan Discharge Details Chief Complaint: PsychEval Clinical Impression: Psychosis Primary Care Provider: Scarlet Ortiz ED Provider: Conner Javier Home Meds and New Rx's Prescriptions: No Action fluticasone propionate 50 mcg/actuation spray,suspension 1 spray intranasal BID Rx Instructions: administer into each nostril duloxetine 30 mg capsule,delayed release(DR/EC) 30 mg PO DAILY Patient Comments: TAKE 1 CAPSULE BY MOUTH EVERY DAY Mirena 20 mcg/24 hours (5 yrs) 52 mg Intrauterine Device INTRAUTERINE
--- NOTE | 2024-10-02 07:40 | ED.PROG1_ITS ---
Date of service: 10/02/24 Time of Service: 07:40 Psychiatric Border Handoff Update Brief Story: Patient on EE status for psychosis, no reported issues on prior shift and currently without new acute complaints. Will continue to monitor until safe disposition found. Status: EE Able to leave: no, this patient is an EE Mediation Reconciliation performed: Yes Code Status ordered: Yes Diet ordered: Yes Discharge Plan Discharge Details Chief Complaint: PsychEval Clinical Impression: Psychosis Primary Care Provider: Scarlet Ortiz ED Provider: Shemar Saunders [place] Meds and New Rx's Prescriptions: No Action fluticasone propionate 50 mcg/actuation spray,suspension 1 spray intranasal BID Rx Instructions: administer into each nostril duloxetine 30 mg capsule,delayed release(DR/EC) 30 mg PO DAILY Patient Comments: TAKE 1 CAPSULE BY MOUTH EVERY DAY Mirena 20 mcg/24 hours (5 yrs) 52 mg Intrauterine Device INTRAUTERINE
--- NOTE | 2024-10-02 08:10 | CMSP_ITS ---
Date of service: 10/02/24 Time of Service: 08:12 Care Management Safety Plan Status Status: Involuntary Reason for Wait Reason for Wait: Inpatient Admission Safety Plan Safety Plan: INVOLUNTARY FOR INPATIENT PSYCHIATRIC STABILIZATION.? Patient is appropriate in all interactions since arriving at [facility]; Pt has demonstrated appropriate coping and communication skills, has articulated his or her needs and concerns and is fully engaged during staff interactions. Safety plan has been established with patient, and care team, to adhere to patient goals, identify restrictions based on behavioral status, address nutrition, and determine allowed personal belongings, tools for hygiene and personal care. Determine level of activity including ambulation, level of supervision, visitors, and determine privileges based on behaviors and level of engagement by pt. SAFETY PLAN: 1. Will remain on suicide precautions, in paper clothes 2. Will remain in Zone B under direct supervision of one-on-one staff at all times provided by [employer]; LEXII, SOCIAL SERVICES SPECIALIST computational sciences professor. 3. May have paper cups, plates, finger foods as well as a cardboard spoon with which to eat meals. 4. Follow [facility] Management of the Admitted Behavioral Health Patient policy. 5. Shower available in Zone B without restriction. 6. Personal belongings-soft items permitted at RN discretion. 7. Visitors-none at this time. 8. Activities: soft cart items approved per RN discretion. 9.? Bathroom available in Zone B without restriction. 10. Phone: limited to medical legal investigator on [facility] cordless phone at RN discretion. Due to INVOLUNTARY status, patient is being held at [facility] by the Department of Mental Health ([facility]) until 2nd certification by [facility] Psychiatrist can be performed (within 24 hours). Staff will provide de-escalation support (CPI) as needed. If patient wishes to leave [facility], staff will contact [facility] Crisis Screener ([phone]) and [address] Magistrate ([phone]) as soon as possible. In the event of elopement, notify [place] [employer] ([phone]). Patient is currently involuntarily at [facility]. [facility] Frontline Hose Finisher will continue seeking placement. Please contact the [address] Magistrate for any needed changes to Safety Plan. Safety plan has been provided to interdepartmental care team. Patient will be transported by [facility] at time of discharge.
--- NOTE | 2024-10-02 08:10 | PDOC.CMPRO ---
Date of service: 10/02/24 Time of Service: 11:36 Care Management Progress Note Progress Note Text Progress Note Text: CM spoke with ED charge accounts audit clerk surrounding Scarlet's plan of care. Per report, Scarlet was accepted by [facility] and transportation will be coordinated by [place]. It is anticipated Scarlet will discharge today. CM will continue to follow. Social Determinants of Health Screening Will the Patient Participate in the Screening?: Declined to provide
--- NOTE | 2024-10-02 08:10 | PDOC.CMSAFE ---
Date of service: 10/02/24 Time of Service: 08:12 Care Management Safety Plan Status Status: Involuntary Reason for Wait Reason for Wait: Inpatient Admission Safety Plan Safety Plan: INVOLUNTARY FOR INPATIENT PSYCHIATRIC STABILIZATION.? Patient is appropriate in all interactions since arriving at [facility]; Pt has demonstrated appropriate coping and communication skills, has articulated his or her needs and concerns and is fully engaged during staff interactions. Safety plan has been established with patient, and care team, to adhere to patient goals, identify restrictions based on behavioral status, address nutrition, and determine allowed personal belongings, tools for hygiene and personal care. Determine level of activity including ambulation, level of supervision, visitors, and determine privileges based on behaviors and level of engagement by pt. SAFETY PLAN: 1. Will remain on suicide precautions, in paper clothes 2. Will remain in Zone B under direct supervision of one-on-one staff at all times provided by [employer]; LEXII, GRASS CUTTER therapy coordinator. 3. May have paper cups, plates, finger foods as well as a cardboard spoon with which to eat meals. 4. Follow [facility] Management of the Admitted Behavioral Health Patient policy. 5. Shower available in Zone B without restriction. 6. Personal belongings-soft items permitted at RN discretion. 7. Visitors-none at this time. 8. Activities: soft cart items approved per RN discretion. 9.? Bathroom available in Zone B without restriction. 10. Phone: limited to immigration paralegal on [facility] cordless phone at RN discretion. Due to INVOLUNTARY status, patient is being held at [facility] by the Department of Mental Health ([facility]) until 2nd certification by [facility] Psychiatrist can be performed (within 24 hours). Staff will provide de-escalation support (CPI) as needed. If patient wishes to leave [facility], staff will contact [facility] Crisis Screener ([phone]) and [employer] ([phone]) as soon as possible. In the event of elopement, notify [place] [employer] ([phone]). Patient is currently involuntarily at [facility]. [facility] Frontline National Flatbed Truck Driver will continue seeking placement. Please contact the [employer] for any needed changes to Safety Plan. Safety plan has been provided to interdepartmental care team. Patient will be transported by [facility] at time of discharge.
== END 2024-10-02 19:00 ==
PROVIDERS: Emergency Medicine; Emergency Provider Emergency Medicine; PCP Internal Medicine
DX: F23 Brief psychotic disorder (principal)
CPT/HCPCS: 99285 ×2; 36415; 00123; 80053; 80307; 93005; G0378; 80320; 80329; 81003; 81015; 84443; 84703; 85025; 93010